=== PATIENT | female | born 1940 | race Caucasian/White ===

== ENCOUNTER 2019-01-21 14:33 | Emergency (ER) | payer MEDICARE, BC ==
[~2019-01-21] VITALS: Ht 157.5 cm; Wt 56.8 kg
[2019-01-21 14:38] VITALS: Ht 157.5 cm; Wt 56.8 kg
[2019-01-21] MEDS ORDERED: OMNICEF300 MG PO (14:41)
[2019-01-21] MEDS ORDERED: CELEBREX200 MG PO (14:41)
[2019-01-21] MEDS ORDERED: PROTONIX40 MG PO (14:41)
[2019-01-21] MEDS ORDERED: ATIVAN1 MG PO (14:42)
[2019-01-21] MEDS ORDERED: FISH OIL 1,0001 CA1 PO (14:42)
[2019-01-21] MEDS ORDERED: BUTALB-APAP-CA1 EACH PO (14:43)
[2019-01-21] MEDS ORDERED: MIDODRINE HCL10 MG PO (14:43)
[2019-01-21] MEDS ORDERED: LIPITOR20 MG PO (14:45)
[2019-01-21] MEDS ORDERED: [UNRECOGNIZED DRUG - REMARK] PO (14:45)
[2019-01-21 15:06] LABS: APPEARANCE CLEAR (CLEAR); BILIRUBIN NEGATIVE (NEGATIVE); COLOR STRAW (YELLOW); GLUCOSE NEGATIVE (NEGATIVE); KETONE NEGATIVE (NEGATIVE); NITRITE NEGATIVE (NEGATIVE); PROTEIN TRACE mg/dL (NEGATIVE); SPECIFIC GRAVITY 1.015 (1.005-1.020); UROBILINOGEN NORMAL (NORMAL)
[2019-01-21 15:08] LABS: BACTERIA FEW /hpf (NONE SEEN); RED CELLS - URINE 0-5 /hpf (0-5); WHITE CELLS - URINE 0-5 /hpf (0-5)
[2019-01-21 15:14] LABS: BASOPHILS 1.2 % (0-2); EOSINOPHILS 1.8 % (0-7); HEMATOCRIT 36.8 % (36.0-48.0); HEMOGLOBIN 12.5 g/dL (12-16); IMMATURE GRANULOCYTES 0.1 % (0-5); LYMPHOCYTES 32.5 % (15-50); MCH 29.8 pg (26.0-34.0); MCV 87.6 fL (80.0-100.0); MEAN PLATELET VOLUME 8.6 fL (7.4-10.4); NEUTROPHILS 54.4 % (40-80); PLATELET COUNT 316 10x3/uL (130-400); WBC 6.7 10x3/uL (4.8-10.8)
[2019-01-21 15:29] LABS: ALBUMIN 3.4 g/dL (3.4-5.0); ANION GAP 11.2 mmol/L (8-16); BILIRUBIN - TOTAL 0.26 mg/dL (0.2-1.3); CALCIUM 8.4 mg/dL (8.5-10.1); CARBON DIOXIDE 28.6 mmol/L (21.0-32.0); PROTEIN - SERUM 7.2 g/dL (6.4-8.2)
[2019-01-21 15:31] LABS: POTASSIUM - SERUM 2.8 mmol/L (3.5-5.1)
[2019-01-21 18:23] VITALS: BP 164/67
[2019-01-22] MEDS ORDERED: ATIVAN1 MG (19:22)
== END 2019-01-21 18:56 ==
LOC: D.ER 14:33
PROVIDERS: Family Medicine
DX: F41.8 Other specified anxiety disorders (principal); K21.9 Gastro-esophageal reflux disease without esophagitis; Z91.81 History of falling

== ENCOUNTER 2019-01-22 14:40 | Inpatient (IN) | payer MEDICARE, BC ==
[~2019-01-22] VITALS: Ht 157.5 cm; Wt 56.4 kg
[~2019-01-22 14:40] MED LIST: ATIVAN1 MG PO; BUTALB-APAP-CA1 EACH PO; CELEBREX200 MG PO; FISH OIL 1,0001 CA1 PO; LIPITOR20 MG PO; MIDODRINE HCL10 MG PO; OMNICEF300 MG PO; PROTONIX40 MG PO; [UNRECOGNIZED DRUG - REMARK] PO
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
[2019-01-22 15:13] LABS: BASOPHILS 1.6 % (0-2); EOSINOPHILS 2.1 % (0-7); HEMATOCRIT 35.8 % (36.0-48.0); HEMOGLOBIN 11.9 g/dL (12-16); IMMATURE GRANULOCYTES 0.2 % (0-5); LYMPHOCYTES 37.6 % (15-50); MCH 29.3 pg (26.0-34.0); MCHC 33.2 g/dL (31.0-37.0); MCV 88.2 fL (80.0-100.0); MEAN PLATELET VOLUME 8.8 fL (7.4-10.4); MONOCYTES 10.6 % (2-11); NEUTROPHILS 47.9 % (40-80); PLATELET COUNT 322 10x3/uL (130-400); RBC 4.06 10x6/uL (4.00-5.40); WBC 6.1 10x3/uL (4.8-10.8)
[2019-01-22 15:24] LABS: APPEARANCE CLEAR (CLEAR); BILIRUBIN NEGATIVE (NEGATIVE); COLOR YELLOW (YELLOW); GLUCOSE NEGATIVE (NEGATIVE); KETONE NEGATIVE (NEGATIVE); NITRITE NEGATIVE (NEGATIVE); PROTEIN NEGATIVE (NEGATIVE); SPECIFIC GRAVITY 1.025 (1.005-1.020); UROBILINOGEN NORMAL (NORMAL)
[2019-01-22 15:25] LABS: BACTERIA MODERATE /hpf (NONE SEEN); EPITHELIAL CELLS 0-5 /hpf (0-5); MUCUS <1+ /lpf (NONE SEEN); RED CELLS - URINE 0-5 /hpf (0-5); WHITE CELLS - URINE 0-5 /hpf (0-5)
[2019-01-22 15:29] LABS: ALBUMIN 3.2 g/dL (3.4-5.0); ANION GAP 10.2 mmol/L (8-16); BILIRUBIN - TOTAL 0.29 mg/dL (0.2-1.3); CALCIUM 8.2 mg/dL (8.5-10.1); CARBON DIOXIDE 27.3 mmol/L (21.0-32.0); CREATININE - SERUM 1.1 mg/dL (0.6-1.3)
[2019-01-22 15:34] LABS: POTASSIUM - SERUM 3.5 mmol/L (3.5-5.1)
--- NOTE | 2019-01-22 15:50 | NUR ---
. BIMAL NOTIFIED OF PT.
--- NOTE | 2019-01-22 16:57 | NUR ---
[facility] CALLED BACK WILL TALK TO DR. CHAVEZ AND WILL CALL BACK
--- NOTE | 2019-01-22 17:18 | NUR ---
SR. CARE ACCEPTED PT . WILL TAKE HER DOWN IN WHEEL CHAIR.
[2019-01-22] MEDS ORDERED: ATIVAN1 MG (19:22)
--- NOTE | 2019-01-22 19:26 | NUR ---
PATIENT ARRIVED TO UNIT VIA WHEELCHAIR FROM ER. PAPERWORK WITH PATIENT. WEIGHT OBTAIN ON ADMISSION: 152.4 IBS, STATED HEIGHT: 5'3. ADMISSION VITALS SIGNS: TEMP: 98.1, B/P: 116/69, P: 94, R:18, SPO2: 98%. PATIENT IS AMBULATORY FROM HOME LIVING WITH DAUGHTER AND SON IN [place]. CODE STATUS: FULL CODE. CODEWORD: BRENDEN. SPOKE WITH DAUGHTER AND GAVE HER THE CODEWORD AND THE LIST OF PEOPLE THE PATIENT OKAY FOR THE CODEWORD. ONE SMALL SCRATCH ON ARM PRIOR TO ADMIT. PATIENT IS WEARING GLASSES, DENTURES. GOOD SKIN AUDIT. NO BREAKDOWN NOTED. PERRLA NOTED. MOIST MUCOUS MEMBRANES. NO EDEMA NOTED TO BILATERAL EXT. NO BREAKDOWN NOTED BEHIND EARS DUE TO GLASSES. FLU SHOT LAST YEAR AND PNEMONIA SHOT GIVE LAST YEAR. PATIENT IS HERE VOLUNTARY. AAOX1. WHEN ASKED SHE DID NOT KNOW THE NAME OF THE HOSPITAL OR THE DATE. SHE SAID SHE DID NOT KEEP UP WITH THE DATES.
[2019-01-22 23:01] VITALS: BP 167/67
[2019-01-23 00:31] VITALS: BP 116/69; BMI 22.9
--- NOTE | 2019-01-23 01:25 | NUR ---
B) Patient is alert and oriented to person and being in a hospital, calm and pleasant, I) no medications this shift, monitored for safety R) Patient wanted her HS medications but they were not available due to pharmacy not being heree on the weekend, P) Continue plan of care.
[2019-01-23 07:00] VITALS: BP 172/90
[2019-01-23 07:44] LABS: CHOL - HDL RATIO 2.4 ratio (2.3-4.1); LDL-HDL RATIO 1.3 ratio (1.5-3.5); THYROID STIMULATING HORMONE 1.12 uIU/mL (0.36-3.74)
--- NOTE | 2019-01-23 09:11 | NUR ---
PATIENT IS ALERT ORIENTED TO SELF AND BEING ADMITTED TO THE HOSPITAL. NO ACUTE DISTRESS NOTED. NO BEHAVIORS NOTED THIS SHIFT. WILL CONT PLAN OF CARE.
--- NOTE | 2019-01-23 15:36 | NUR ---
U/A OBTAINED FOR CULTURE. CLEAN CATH METHOD. LABELED AT BEDSIDE.
[2019-01-23 16:04] LABS: APPEARANCE CLEAR (CLEAR); BILIRUBIN NEGATIVE (NEGATIVE); COLOR YELLOW (YELLOW); GLUCOSE NEGATIVE (NEGATIVE); KETONE SMALL mg/dL (NEGATIVE); NITRITE NEGATIVE (NEGATIVE); PROTEIN NEGATIVE (NEGATIVE); UROBILINOGEN NORMAL (NORMAL)
[2019-01-23 16:05] LABS: BACTERIA FEW /hpf (NONE SEEN); RED CELLS - URINE 0-5 /hpf (0-5); WHITE CELLS - URINE OCC /hpf (0-5)
--- NOTE | 2019-01-23 18:07 | NUR ---
PT IS VERY ANXIOUS AT THIS TIME. PT CONTINUES TO CRY. ATTEMPTED TO REASSURE PT. THAT STAFF AND DR. SHARMA WILL HELP WITH HER DEPRESSION. PT. STATES " I KNOW, HE IS A GOOD DOCTOR." PT. CONTINUES TO BE VERY ANXIOUS AND UNABLE TO CONTROL TEARS. ATIVAN 0.5MG PO GIVEN PER ORDER FOR ANIETY. WILL CONTINUE TO MONITOR FOR SAFETY. WILL CPOC.
--- NOTE | 2019-01-23 19:46 | NUR ---
RECEIVED IN DAYROOM. SITTING IN A CHAIR WITH PEERS AT HER SIDE. CALM AND COOPERATIVE WITH CARE AND ASSESSMENT. ENCOURAGE TO EXPRESS NEEDS. RESTING QUIETLY AT THIS TIME. CONTINUE PLAN OF CARE
[2019-01-23 20:08] VITALS: BP 175/72
[2019-01-24 07:00] VITALS: BP 162/80
[2019-01-24 09:08] VITALS: BMI 22.9
--- NOTE | 2019-01-24 15:07 | PSY ---
PATIENT NAME:ALEXX SAMS MEDICAL RECORD: [id number] : 40 LOCATION:[facility] ADMISSION DATE: 01/22/19 ACCOUNT: [id number] PSYCHIATRIC EVALUATION DATE OF EVALUATION: 01/23/19 IDENTIFYING DATA: The patient is 78 years old and she is admitted to the hospital on a voluntary basis because of depression. CHIEF COMPLAINT: Depression. HISTORY OF PRESENT ILLNESS: The patient has been in the Emergency Room twice in the past 72 hours, both for depression. At one point, she had endorsed some suicidal thoughts, but then backed away from it. She now says she does not want to kill herself, but really does not care if she dies because she is so unhappy. She tells me that her had to go to the intermediate because of dementia. She is living with her daughter and son-in-law and she does not like it there. She tells me that they have sold her house. She reports numerous similar losses. She is endorsing numerous neurovegetative depressive symptoms along with a great deal of anxiety. She denies that she wants to harm herself or others. She denies psychotic symptoms and she insists that she does not have dementia and does not understand why her daughter is insisting that she does. She feels very frustrated. PAST MEDICAL HISTORY: Significant for hypercholesterolemia and osteoarthritis. The patient otherwise has had a fairly unremarkable medical history. PAST PSYCHIATRIC HISTORY: Significant for outpatient treatment with a psychiatrist for many years. She has been diagnosed with depression and anxiety and has taken both anxiolytics and benzodiazepines on a regular basis. FAMILY HISTORY: Significant for coronary artery disease. ALLERGIES: SULFA. CURRENT MEDICATIONS: Include Omnicef, Lipitor, Celebrex, Florinef, Protonix. SOCIAL HISTORY: The patient is . Her of the past 35 years is in the intermediate with dementia. Her first with whom she has 2 children and is about a month ago. She has an adult son, who has been in the [facility]. She has an adult daughter with whom she is currently living. 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 She has no history of drug or alcohol abuse and generally functioned reasonably well both socially and occupationally. MENTAL STATUS EXAMINATION: The patient is awake, alert and contrary to what others have recorded and reported fully oriented. Interestingly, it took her a long time to recall the year, the month and the day, but she got it all correct. Obviously, she knows she is in a hospital and she did explain the circumstances very well. Her mood is clearly depressed. She is tearful. She is also having some anxiety. Her affect is constricted around these symptoms. Her concentration is impaired. Her abstraction is intact. She denies intent to harm herself or others and she denies overt psychotic symptoms. ASSETS: Supportive family members. LIABILITIES: Poor insight. DIAGNOSTIC IMPRESSION: AXIS I: Major depressive disorder, recurrent, severe without psychotic features. Generalized anxiety disorder. AXIS II: Cluster C personality traits. AXIS III: Osteoarthritis, hyperlipidemia. AXIS IV: Severe stressors. AXIS V: Global assessment of functioning is 40. PLAN: At this time, the patient is clearly profoundly depressed. There is clear evidence of cognitive impairment, but the nature and circumstances of it leads me to conclude that either she is not demented and is having such severe depressive symptoms that are interfering with her cognition or there is a dementia present and it is in the early stages. At this point, I am going to focus on treating her mood and anxiety disorder and assisting her with her psychosocial situation. For this reason, she will be evaluated by from both a medical, psychological, and social standpoint and every effort will be made to return her to functioning as independently as is possible in the least restrictive environment practical. TRANSINT:[id number] Voice Confirmation ID: [id number] DOCUMENT ID: [id number] LLUVIA SHARMA MD at 1507 CC: [id number] DICTATION DATE: 01/23/19 1243 MATERIAL WORKER: 01/23/19 1514 [facility] IN [facility] [address] [place] [address]
--- NOTE | 2019-01-24 18:00 | NUR ---
IS ORIENTED X 3.NO BEHAVIORS OBSERVED THIS SHIFT.DID C/O NAUSEA,ZOFRAN WAS GIVEN WITH GOOD RESPONSE.IS COMPLIANT WITH MEDS AND STAFF.SOCIALIZES WITH PEERS.WILL CONTINUE WITH PLAN OF CARE,MONITOR FOR SAFETY AND CHANGES.
[2019-01-24 20:15] VITALS: BP 161/65
--- NOTE | 2019-01-24 21:42 | NUR ---
B.) Patient is alert and oriented to self, place and situation. I.) Provided PM medications R.) Compliant with all medications. P.) Continue Plan of Care
[2019-01-25 06:09] LABS: RAPID PLASMA REAGIN Non Reactive (Non Reactive)
[2019-01-25 07:00] VITALS: BP 159/74
--- NOTE | 2019-01-25 14:54 | PN ---
PATIENT:ALEXX SAMS MEDICAL RECORD: [id number] LOCATION:[facility] ADMISSION DATE: 01/22/19 PROGRESS NOTE DATE OF SERVICE: 01/24/2019 SUBJECTIVE: The patient's case was discussed with staff. She has no new complaint. OBJECTIVE: The patient is in good behavioral control with limited insight about her condition. She does tolerate her medicines reasonably well. She says she did not sleep last night, but the nursing staff recorded 7 hours. ASSESSMENT: Major depression. PLAN: The patient is going to be maintained on Celexa; however, the dose will be increased to 20 mg daily. She will be monitored for clinical changes associated with its use. Her long-term prognosis is guarded. TRANSINT:[id number] Voice Confirmation ID: [id number] DOCUMENT ID: [id number] LLUVIA SHARMA MD at 1454 CC: [id number] DICTATION DATE: 01/24/192003 WEB UI SOFTWARE ENGINEER: 01/24/19 3233 ADM IN [place] [id number] [place] [id number]
--- NOTE | 2019-01-25 15:15 | NUR ---
PT IS AWAKE AND ALERT X 3. PT IS CALM AND COOPERATIVE WITH ASSESSMENT. DENIES ANY PAIN OR DISCOMFORT AT THIS TIME. NO BEHAVIORS NOTED AT THIS TIME. MED COMPLIANT. WILL CPOC.
[2019-01-25 15:19] VITALS: Ht 157.5 cm; Wt 56.4 kg
--- NOTE | 2019-01-25 19:56 | NUR ---
RECEIVED IN BEDROOM. RESTING IN BED WITH EYES OPEN. CALM AND COOPERTIVE WITH CARE AND ASSESSMENT. ENCOURAGE TO EXPRESS NEEDS. RESTING IN BED EYES CLOSED AT THIS TIME. CONTINUE PLAN OF CARE
[2019-01-25 20:00] VITALS: BP 138/48
[2019-01-26 09:39] VITALS: BP 128/56
--- NOTE | 2019-01-26 10:00 | NUR ---
RECEIVED PATIENT IN DINING ROOM FOR B'FAST, ALERT, CALM, COOPERATIVE, PLEASANT MOOD. MEDS ADMIN PER ORDERS WITH COMPLETE MED COMPLIANCE NOTED. COOPERATIVE WITH GROUP ACTIVITY AND STAFF REQUESTS. CONT POC INCLUDING MEDS AND GROUP THERAPY DIRECTED.
--- NOTE | 2019-01-26 15:16 | PN ---
PATIENT:ALEXX SAMS MEDICAL RECORD: [id number] LOCATION:[facility] ADMISSION DATE: 01/22/19 PROGRESS NOTE DATE OF SERVICE: 01/25/2019 SUBJECTIVE: The patient's case was discussed with staff. She has no new complaint. OBJECTIVE: The patient is in good behavioral control with limited insight about her condition. She tolerates her medicines well. ASSESSMENT: Major depression. PLAN: The patient has no thoughts of harming herself. Unfortunately, she is not eating very well and when asked about this, says that she is eating, which is not the case. I do plan to start her on Megace to assist with appetite stimulation. TRANSINT:[id number] Voice Confirmation ID: [id number] DOCUMENT ID: [id number] LLUVIA SHARMA MD at 1516 CC: [id number] DICTATION DATE: 01/25/19 1625 MANUFACTURING QUALITY INSPECTOR: 01/25/19 1855 ADM IN [place] [id number] [place] [address]
--- NOTE | 2019-01-26 21:34 | NUR ---
GAVE PT FIORICET AND BACLOFIN FOR MIGRIAN HEADACHE AT 21:30.
--- NOTE | 2019-01-26 23:34 | NUR ---
PATIENT IS CONFUSED, PLEASANT, COMPLIANT WITH MEDS. WILL FOLLOW POC
[2019-01-27 09:40] VITALS: BP 115/64
--- NOTE | 2019-01-27 13:20 | NUR ---
PATIENT SITTING AND SOCIALZING WITH PEERS. RESP EVEN AND NONLABORED. NO ACUTE DISTRESS NOTED. PT IS CONFUSED AT TIMES. ORIENTED TO SELF AND SITUTION. MED COMPLIANT. AMBULATES. WILL CONT PLAN OF CARE.
--- NOTE | 2019-01-27 13:45 | PN ---
PATIENT:ALEXX SAMS MEDICAL RECORD: [id number] LOCATION:[facility] ADMISSION DATE: 01/22/19 PROGRESS NOTE DATE OF SERVICE: 01/26/2019 SUBJECTIVE: The patient's case was discussed with staff. She has no new complaint. OBJECTIVE: The patient is in good behavioral control. She has limited insight about her condition. She is tolerating her medicines well. I have reduced her Klonopin slightly. It has not made any difference in her level of improvement in her anxiety up to this point. TRANSINT:[id number] Voice Confirmation ID: [id number] DOCUMENT ID: [id number] LLUVIA SHARMA MD at 1345 CC: [id number] DICTATION DATE: 01/26/19 1540 APPRAISER: 01/26/19 1830 ADM IN [facility] [address] [place] [address]
--- NOTE | 2019-01-27 15:20 | NUR ---
Treatment team review: Nutrition follow-up: Diet: regular PO intake ~70% average x 6 meals Labs reviewed +BM Wt: 126# RDN following.
--- NOTE | 2019-01-27 19:54 | NUR ---
PATIENT IS CONFUSED, POOR INSIGHT, LABILE, COMPLIANT WITH MEDS, EASILY DIRECTED AND REDIRECTED. CAN MAKE NEEDS KNOWN, WILL FOLLOW POC
[2019-01-28 04:30] VITALS: BP 143/78
--- NOTE | 2019-01-28 09:04 | NUR ---
PATIENT IS PLESANT WITH STAFF AND PEERS. SOME CONFUSION NOTED WITH POOR INSIGHT NOTED. PT EXPRESSED WANTING TO LIVE AT HOME BYSELF AND FAMILY SUPPOSE TO BE LOOKING FOR HOUSING. PT IS LABILE AT TIMES. MEDICATION COMPLIANT. ALERT AND ORIENTED TO SELF, TIME. REDIRECT AND REORIENT NEEDED. AMBULATES. CONT PLAN OF CARE.
[2019-01-28 09:21] VITALS: BP 129/74
[2019-01-28 10:25] VITALS: BP 120/74
--- NOTE | 2019-01-28 14:20 | NUR ---
PATIENT REQUESTED MEDICATION FOR HEADACHE. BUTALBITAL/ACETAMINOPHEN AND CAFFEINE 50/325/40 MG. WILL REASSES Q 1 HOUR FOR PAIN.
--- NOTE | 2019-01-28 15:51 | PN ---
PATIENT:ALEXX SAMS MEDICAL RECORD: [id number] LOCATION:[facility] ADMISSION DATE: 01/22/19 PROGRESS NOTE DATE OF SERVICE: 01/27/2019 SUBJECTIVE: The patient's case was discussed with staff. She has no new complaint. OBJECTIVE: The patient is eating significantly better. She is awake and interactive. ASSESSMENT: No change in diagnoses. PLAN: I am going to taper the patient's Klonopin slightly. She will be monitored for clinical changes associated with this. At this point, she is sleeping very well and staying on a schedule and I am encouraged by her improvement. I do anticipate that she can be discharged soon if this level of improvement continues. TRANSINT:[id number] Voice Confirmation ID: [id number] DOCUMENT ID: [id number] LLUVIA SHARMA MD at 1551 CC: [id number] DICTATION DATE: 01/27/19 1443 BIOFUELS PRODUCT MANAGER: 01/27/19 1505 ADM IN [place] [id number] [place] [id number]
[2019-01-28 22:27] VITALS: BP 138/64
--- NOTE | 2019-01-29 02:01 | NUR ---
B) Patient is alert and oriented to person, place and time, calm and cooperative, I) Administered scheduled medications as ordered, PRN Baclofen 10 mg PO given at 21:13 R) Mediation compliant, sleeping quietly now, P) Continue plan of care.
[2019-01-29 10:30] VITALS: BP 126/73
--- NOTE | 2019-01-29 10:43 | NUR ---
RECEIVED PATIENT IN D/R FOR B'FAST, ALERT, CALM, COOPERATIVE, SOME CONFUSION NOTED. MEDS ADMIN PER ORDERS WITH COMPLETE MED COMPLIANCE NOTED. COOPERATIVE AND QUITE PLEASANT MOOD. CONT POC INCLUDING MEDS AND GROUP THERAPY DIRECTED.
--- NOTE | 2019-01-29 11:56 | PN ---
PATIENT:ALEXX SAMS MEDICAL RECORD: [id number] LOCATION:[facility] ADMISSION DATE: 01/22/19 PROGRESS NOTE DATE OF SERVICE: 01/28/2019 SUBJECTIVE: The patient's case was discussed with staff. She has no new complaint. OBJECTIVE: The patient is in good behavioral control, has a near euthymic mood and is tolerating her medicines well. ASSESSMENT: No change in diagnoses. PLAN: The patient had a very productive session with her health and social care teacher and daughter yesterday. It seems that many of the difficulties have been worked out and when the patient is ready for discharge, which should be soon she is going to go home with her daughter and they are going to look for some sort of us[facility] apartment or assisted living for her. I have reviewed the patient's current medicines and will maintain them. Her long-term prognosis is guarded. TRANSINT:[id number] Voice Confirmation ID: [id number] DOCUMENT ID: [id number] LLUVIA SHARMA MD at 1156 CC: [id number] DICTATION DATE: 01/28/191713 PARKS RECREATION DIRECTOR: 01/28/19 2111 ADM IN [facility] [address] [place] [address]
[2019-01-29 20:10] VITALS: BP 137/58
--- NOTE | 2019-01-29 23:34 | NUR ---
B.) Patient is pleasant with staff and peers. She is alert and oriented to self, place and situation. I.) Provided PM medications. R.) Compliant with all medications. P.) Continue Plan of Care
[2019-01-30 07:00] VITALS: BP 109/47
--- NOTE | 2019-01-30 11:41 | PN ---
PATIENT:ALEXX SAMS MEDICAL RECORD: [id number] LOCATION:[facility] ADMISSION DATE: 01/22/19 PROGRESS NOTE DATE OF SERVICE: 01/29/2019 SUBJECTIVE: The patient's case was discussed with staff. She has no new complaint. OBJECTIVE: The patient is in good behavioral control and has a nearly euthymic mood. She has very limited insight about her situation, but still she is showing improvement. ASSESSMENT: No change in diagnoses. PLAN: The patient will be treated with Klonopin at a slightly lower dose. I plan to taper that off of her medication regimen after tomorrow. Her long-term prognosis is guarded. TRANSINT:[id number] Voice Confirmation ID: [id number] DOCUMENT ID: [id number] LLUVIA SHARMA MD at 1141 CC: [id number] DICTATION DATE: 01/29/19 1241 BEAD WORKER SEWING: 01/29/19 1304 ADM IN [place] [id number] [place] [address]
[2019-01-30] MEDS ORDERED: LISINOPRIL10 MG PO (11:59)
[2019-01-30] MEDS ORDERED: FLORAJEN3 CAPS460 MG PO (12:00)
[2019-01-30] MEDS ORDERED: CELEXA20 MG PO (12:00)
--- NOTE | 2019-01-30 12:02 | NUR ---
RECEIVED PATIENT IN DINING ROOM FOR B'FAST, ALERT, CALM, PLEASANT DISPOSITION, QUITE COOPERATIVE. MEDS ADMIN PER ORDERS WITH COMPLETE MED COMPLIANCE NOTED. COOPERATIVE WITH ALL ASPECTS OF PLAN OF CARE. CONT POC DIRECTED.
[2019-01-30 21:15] VITALS: BP 124/47
--- NOTE | 2019-01-30 22:32 | NUR ---
RECEIVED IN DAYROOM. SITTING IN A RECLINER WITH PEERS AT HER SIDE. CALM AND COOPERATIVE WITH CARE AND ASSESSMENT. REDIRECT AND REORIENT NEEDED. RESTING IN BED WITH WITH EYES CLOSED AT THIS TIME. CONTINUE PLAN OF CARE
[2019-01-31 07:00] VITALS: BP 125/64
--- NOTE | 2019-01-31 10:36 | NUR ---
RECEIVED PATIENT IN DINING ROOM FOR B'FAST, ALERT, CALM, COOPERATIVE. MEDS ADMIN PER ORDERS WITH COMPLETE MED COMPLIANCE NOTED. COOPERATIVE WITH POC. PT TO DISCHARGE LATER THIS SHIFT.
--- NOTE | 2019-01-31 14:00 | NUR ---
PERSONAL BELONGINGS RETURNED TO PATIENT. FAMILY HERE TO TRANSPORT PATIENT HOME. PRESCRIPTIONS PHONED TO [facility] IN [place]. PATIENT CALM, ALERT, ORIENTED, NO S/S DISTRESS OR C/O PAIN. DISCHARGED HOME IN C/O FAMILY.
--- NOTE | 2019-01-31 15:34 | PN ---
PATIENT:ALEXX SAMS MEDICAL RECORD: [id number] LOCATION:[facility] ADMISSION DATE: 01/22/19 PROGRESS NOTE DATE OF SERVICE: 01/30/2019 SUBJECTIVE: The patient's case was discussed with staff. She has no new complaint. OBJECTIVE: The patient has a near euthymic mood. She is tolerating her medicines well. ASSESSMENT: No change in diagnoses. PLAN: Current medicines and therapies have been reviewed and will be maintained. I anticipate she can be transitioned out of the hospital tomorrow if this level of improvement continues. TRANSINT:[id number] Voice Confirmation ID: [id number] DOCUMENT ID: [id number] LLUVIA SHARMA MD at 1534 CC: [id number] DICTATION DATE: 01/30/19 1156 COOK HELPER DESSERT: 01/30/19 1511 ADM IN [facility] [address] [place] [address]
--- NOTE | 2019-02-01 14:50 | PN ---
PATIENT:ALEXX SAMS MEDICAL RECORD: [id number] LOCATION:[facility] M[facility] ADMISSION DATE: 01/22/19 PROGRESS NOTE DATE OF SERVICE: 01/31/2019 SUBJECTIVE: The patient's case was discussed with staff. She has no new complaint. OBJECTIVE: The patient is in good behavioral control with limited insight about her condition. She has no thoughts of harming herself or others. She ate reasonably well yesterday and slept reasonably well last night. ASSESSMENT: Major depression. PLAN: The patient will be transitioned out of the hospital today. Her long-term prognosis is guarded. Supportive and educational and interventions were made. Follow up is to be with her primary care physician. TRANSINT:[id number] Voice Confirmation ID: [id number] DOCUMENT ID: [id number] LLUVIA SHARMA MD at 1450 CC: [id number] DICTATION DATE: 01/31/19 1609 PATTERN PAINTER: 01/31/19 1657 DIS IN 01/31/19 [facility] [address] [place] [address]
== END 2019-01-31 16:12 | disposition home or self-care (01) | DRG 885 ==
LOC: D.ER 14:40 → D.PSYCH 17:29
PROVIDERS: Emergency Medicine; ADMIT Psychiatry & Neurology Psychiatry; ATTEND Psychiatry & Neurology Psychiatry
DX: F33.2 Major depressive disorder, recurrent severe without psychotic features (principal); N39.0 Urinary tract infection, site not specified; F41.1 Generalized anxiety disorder; M19.90 Unspecified osteoarthritis, unspecified site; E78.5 Hyperlipidemia, unspecified; K21.9 Gastro-esophageal reflux disease without esophagitis; G43.909 Migraine, unspecified, not intractable, without status migrainosus; H66.90 Otitis media, unspecified, unspecified ear; I10 Essential (primary) hypertension; R19.7 Diarrhea, unspecified; R11.0 Nausea